=== PATIENT | female | born 1985 | race Caucasian/White ===

== ENCOUNTER 2016-12-01 21:10 | Emergency (ER) | payer OTHER ==
[~2016-12-01] VITALS: Ht 157.5 cm; Wt 83.9 kg
[~2016-12-01 21:10] MED LIST: ENDOCET 325 MG-1 TA1 PO; FLEXERIL10 MG PO; TORADOL10 MG PO
[2016-12-01 21:16] VITALS: BP 143/81
[2016-12-01] MEDS ORDERED: BACTRIM DS TAB1 EACH PO (21:27)
[2016-12-01] MEDS ORDERED: IBUPROFEN800 M1 PO (21:27)
[2016-12-01] MEDS ORDERED: HYDROCODON-ACE1 EAC2 PO (21:27)
[2016-12-01] MEDS ORDERED: AMOXICILLIN875 M1 PO (21:27)
--- NOTE | 2016-12-01 21:28 | ED ANKLE/FOOT INJURY COMPLAINT ---
History of Present Illness General Chief Complaint: General Adult Stated Complaint: PT LEFT FOOT IS SWALLOW pOSSIBLE GOUT Source: patient Exam Limitations: no limitations Vital Signs & Intake/Output Vital Signs & Intake/Output Vital Signs Date Time Temp Pulse Resp B/P Pulse O2 O2 Flow FiO2 Ox Delivery Rate 12/016 97.5 76 18 143/81 99 Room Air ED Intake and Output 12/02 0000 12/01 1200 Intake Total Output Total Balance Patient 185 lb Weight Allergies Coded Allergies: MDX - Metronidazole (From FLAGYL) (Intermediate, HIVES 02/07/15) MDX - Nitrofurantoin (From MACROBID) (Intermediate, HIVES 02/07/15) Uncoded Allergies: SEASONAL (02/07/15) Reconcile Medications Amoxicillin 875 MG TABLET 1 TAB PO BID cellulitis CYCLOBENZAPRINE HCL (Flexeril) 10 MG TAB 1 TAB PO TID MUSCLE RELAXOR Hydrocodone/Acetaminophen (Hydrocodon-Acetaminophen 5-325) 5 MG-325 MG TABLET 1-2 TAB PO Q4-6 PRN PRN pain Ibuprofen 800 MG TABLET 1 TAB PO TID pain Ketorolac Tromethamine (Toradol) 10 MG TAB 1 TAB PO TID PAIN OXYCODONE HCL/ACETAMINOPHEN (Endocet 5-325 Tablet) 1 TAB TAB 1 TAB PO 4 TIMES/ DAY PRN PAIN Sulfamethoxazole/Trimethoprim (Bactrim Ds Tablet) 800 MG-160 MG TABLET 1 TAB PO BID cellulitis Triage Note: PT TO TRIAGE WITH C/O LEFT FOOT PAIN 8/10 AND SWELLING SING LAST NIGHT. PT DENIES ANY INJURY. NO OTHER COMPLAINTS. VSS. Triage Nurses Notes Reviewed? yes Duration: day(s): (few), constant, continues in ED Timing: recent history Severity: moderate, severe Pain/Injury Location: Left: Foot. No Modifying Factors: none : No Patient currently breastfeeds: No HPI: 31-year-old female comes into emergency room for further evaluation of redness and swelling to her left foot. Symptoms been going on for the past 8 days. Denies any fever or chills. Denies any vomiting. Denies any other associated symptoms. Associated sharp pain. Throbbing. (AMADA MCNALLY) Past History Travel History Traveled to [place] past 21 day No Medical History Any Pertinent Medical History? see below for history Neurological: NONE EENT: NONE Cardiovascular: NONE Respiratory: NONE Gastrointestinal: NONE Hepatic: NONE Renal: NONE Musculoskeletal: fracture, RIB FX SPRAINED ANKLE Psychiatric: ADHD Endocrine: NONE Surgical History Surgical History: non-contributory Psychosocial History What is your primary language Jordanian Tobacco Use: Current Daily Use Daily Tobacco Use Amount/Type: => 5 Cigarettes daily Family History Hx Contributory? No (AMADA MCNALLY) Review of Systems Review of Systems Constitutional: Reports: no symptoms. EENTM: Reports: no symptoms. Respiratory: Reports: no symptoms. Cardiovascular: Reports: no symptoms. GI: Reports: no symptoms. Genitourinary: Reports: no symptoms. Musculoskeletal: Reports: see HPI. Skin: Reports: see HPI. Neurological/Psychological: Reports: no symptoms. Hematologic/Endocrine: Reports: no symptoms. Immunologic/Allergic: Reports: no symptoms. All Other Systems: Reviewed and Negative (AMADA MCNALLY) Physical Exam Physical Exam General Appearance: well developed/nourished, mild distress Head: atraumatic Eyes: Bilateral: normal appearance. Ears, Nose, Throat: normal ENT inspection, hearing grossly normal Neck: normal inspection Cardiovascular/Respiratory: no respiratory distress Back: normal inspection Leg/Knee/Thigh Left: normal range of motion Ankle Left: normal inspection Foot Left: erythema, warmth, swelling, tenderness, well-demarcated borders, dorsalis pedis pulse intact, cap refill intact, Neuro/Vascular: normal sensation Tendon: normal tendon function Psychiatric: awake, alert, oriented x 3 Skin: intact, normal color, warm/dry (AMADA MCNALLY) Progress Differential Diagnosis: arterial insufficiency, cellulitis, septic arthritis, fracture, dislocation, sprain, contusion Plan of Care: 12/01/2016 11:22:44 PM Patient clinically looks well. Nontoxic-appearing. Symptoms most consistent with cellulitis versus gout. Patient started on oral antibiotics. Return if any other concerns. Have recheck in 2 days. (AMADA MCNALLY) Departure Departure Disposition: HOME OR SELF CARE Condition: Stable Clinical Impression Primary Impression: Cellulitis of left foot Referrals: ARAM SAINZ MD (PCP) Additional Instructions: Take Bactrim and amoxicillin as prescribed. Take ibuprofen and Vicodin as prescribed. Warm compresses the foot. Follow-up with primary care doctor in 2 days to have recheck. Return if any other concerns worsening symptoms. Please go over all results of today's visit with your primary care doctor. Contact your primary care doctor to let them know you were here in the emergency room. There may be nonspecific findings which may not be related to your visit today here in the emergency room but may require further evaluation and chronic monitoring by your primary care doctor. If you had a laceration today the chance of foreign body always remains. You should follow-up with your primary care doctor for recheck in 3-5 days for a wound check. If you had an x-ray done there is a chance that a fracture could have been missed on initial read and you should follow-up with your primary care doctor for repeat x-rays if symptoms persist. If your blood pressure was elevated here in the emergency room please have rechecked by her primary care doctor within the next 48 hours by your primary care doctor. If you were prescribed a narcotic here in the emergency room or any type of controlled substances you're not allowed to drive while taking this medication or operate any type of heavy machinery. Narcotics can make you feel lightheaded dizziness nausea and can cause constipation. You may need to diamond picker a stool softener. Thank you for choosing [facility] emergency room. Please return to the emergency room immediately if you have any other concerns worsening of symptoms. Departure Forms: Customer Survey General Discharge Information Prescriptions: Current Visit Scripts Hydrocodone/Acetaminophen (Hydrocodon-Acetaminophen 5-325) 1-2 TAB PO Q4-6 PRN PRN pain #10 TAB Ibuprofen 1 TAB PO TID #30 TAB Sulfamethoxazole/Trimethoprim (Bactrim Ds Tablet) 1 TAB PO BID #20 TAB Amoxicillin 1 TAB PO BID #20 TAB (AMADA MCNALLY) PA/ORACLE SOFTWARE ENGINEER Co-Sign Statement Statement: ED Attending supervision documentation- [] I saw and evaluated the patient. I have also reviewed all the pertinent lab results and diagnostic results. I agree with the findings and the plan of care as documented in the PA's/ORACLE SOFTWARE ENGINEER's documentation. [x] I have reviewed the ED Record and agree with the PA's/ORACLE SOFTWARE ENGINEER's documentation. [] Additions or exceptions (if any) to the PAs/ORACLE SOFTWARE ENGINEER's note and plan are summarized below: [] (LINDSEY BANSAL,KAMALA Golden)
== END 2016-12-01 22:35 ==
LOC: ERH 21:10
DX: L03.116 Cellulitis of left lower limb (principal)